=== PATIENT | female | born 1985 | race Two or more races ===

== ENCOUNTER → 2024-02-16 15:56 | Outpatient (CLI) | payer OTHER | END | disposition home or self-care (01) | LOC: PRENATAL 15:56 | PROVIDERS: ATTEND Obstetrics & Gynecology Maternal & Fetal Medicine | DX: O35.9XX0 Maternal care for (suspected) fetal abnormality and damage, unspecified, not applicable or unspecified (principal); O44.02 Complete placenta previa NOS or without hemorrhage, second trimester; O09.522 Supervision of elderly multigravida, second trimester; O34.12 Maternal care for benign tumor of corpus uteri, second trimester; D25.9 Leiomyoma of uterus, unspecified; O35.3XX0 Maternal care for (suspected) damage to fetus from viral disease in mother, not applicable or unspecified; A92.5 Zika virus disease; Z3A.20 20 weeks gestation of pregnancy ==

== ENCOUNTER 2024-02-24 19:38 | Emergency (ER) | payer OTHER ==
[~2024-02-24] VITALS: Ht 152.4 cm; Wt 60.8 kg
[2024-02-24] MEDS ORDERED: PRENA1 TRUE CO1 EACH (20:02)
[2024-02-24] MEDS ORDERED: ACETAMINOPHEN 325 MG TABLET PO STA (20:46)
== END 2024-02-24 22:45 | disposition home or self-care (01) ==
LOC: ER 19:39
DX: O98.512 Other viral diseases complicating pregnancy, second trimester (principal); U07.1 COVID-19; Z3A.20 20 weeks gestation of pregnancy

== ENCOUNTER 2024-03-04 21:18 | Emergency (ER) | payer OTHER ==
[~2024-03-04] VITALS: Ht 152.4 cm; Wt 60.8 kg
[~2024-03-04 21:18] MED LIST: PRENA1 TRUE CO1 EACH
== END 2024-03-04 22:52 | disposition home or self-care (01) ==
LOC: ER 21:19
DX: R00.2 Palpitations (principal)

== ENCOUNTER 2024-04-13 13:22 | Outpatient (CLI) | payer OTHER | END 2024-04-13 13:23 | disposition home or self-care (01) | LOC: PRENATAL 13:22 | PROVIDERS: ATTEND Obstetrics & Gynecology Maternal & Fetal Medicine | DX: O26.843 Uterine size-date discrepancy, third trimester (principal); O44.03 Complete placenta previa NOS or without hemorrhage, third trimester; O09.523 Supervision of elderly multigravida, third trimester; O34.13 Maternal care for benign tumor of corpus uteri, third trimester; Z3A.28 28 weeks gestation of pregnancy ==

== ENCOUNTER 2024-05-23 15:20 | Outpatient (CLI) | payer OTHER | END 2024-05-23 15:21 | disposition home or self-care (01) | LOC: PRENATAL 15:20 | PROVIDERS: ATTEND Obstetrics & Gynecology Maternal & Fetal Medicine | DX: O26.849 Uterine size-date discrepancy, unspecified trimester (principal); O36.8199 Decreased fetal movements, unspecified trimester, other fetus; O09.529 Supervision of elderly multigravida, unspecified trimester; O34.10 Maternal care for benign tumor of corpus uteri, unspecified trimester; O99.019 Anemia complicating pregnancy, unspecified trimester; Z3A.34 34 weeks gestation of pregnancy ==

== ENCOUNTER 2024-06-20 13:15 | Inpatient (IN) | payer OTHER ==
[~2024-06-20] VITALS: Ht 154.9 cm; Wt 68.0 kg
[2024-06-28] MEDS ORDERED: RINGERS SOLUTION,LACTATED 1,000 ML IV SCH (18:00)
[2024-06-28] MEDS ORDERED: AMPICILLIN SODIUM 2,000 MG VIAL IV ONE (18:15)
[2024-06-28 18:20] VITALS: BP 125/78
[2024-06-28] MEDS ORDERED: ACETAMINOPHEN 325 MG TABLET PO PRN (19:00)
[2024-06-28] MEDS ORDERED: OxyCODONE HCL/APAP UD (PERCOCET) PO PRN (19:00)
[2024-06-28] MEDS ORDERED: OXYTOCIN 20 UNITS/1000ML RL PIGGYBAG IV ONE (19:00)
[2024-06-28] MEDS ORDERED: CHLORHEXIDINE GLUCONATE 120 ML BOTTLE TOP ONE (19:00)
[2024-06-28 20:15] LABS: HEMATOCRIT 30.6 % (36.0-45.00); HEMOGLOBIN 10.1 g/dL (12.0-15.00); MEAN CORPUSCULAR HEMOGLOBIN 28.3 pg (27.00-32.0); MEAN CORPUSCULAR HGB CONC 32.9 g/dl (32.0-36.0); PLATELET COUNT 180 K/uL (150-450); RED BLOOD COUNT 3.56 M/uL (4.00-6.00); RED CELL DISTRIBUTION WIDTH 14.9 % (11.5-14.5)
[2024-06-28 20:31] LABS: INR 0.94; PARTIAL THROMBOPLASTIN TIME 27.6 SECONDS (22.0-34.0); PROTHROMBIN TIME 10.3 SECONDS (9.0-11.5)
[2024-06-28 20:35] LABS: ALBUMIN 2.7 gm/dL (3.4-5.0); BILIRUBIN TOTAL 0.4 mg/dL (0.3-1.2); CALCIUM 8.5 mg/dL (8.5-10.1); CREATININE SERUM 0.66 mg/dL (0.55-1.02); GFR 99.19; GLOBULINA 3.9 G/DL (2.4-3.5); POTASSIUM 3.6 mEq/L (3.5-5.1); TOTAL PROTEIN 6.6 gm/dL (6.4-8.2)
[2024-06-28 22:40] VITALS: BP 113/63
[2024-06-29 00:32] VITALS: BP 104/69
[2024-06-29 01:28] LABS: HEMATOCRIT 28.3 % (36.0-45.00); HEMOGLOBIN 9.1 g/dL (12.0-15.00); MEAN CELL VOLUME 87.1 fL (80.00-100.00); MEAN CORPUSCULAR HGB CONC 32.1 g/dl (32.0-36.0); PLATELET COUNT 162 K/uL (150-450); RED BLOOD COUNT 3.25 M/uL (4.00-6.00); RED CELL DISTRIBUTION WIDTH 14.8 % (11.5-14.5)
[2024-06-29 07:46] VITALS: BP 104/72
[2024-06-29] MEDS ORDERED: BENZOCAINE/MENTHOL 90 ML BOTTLE TOP SCH (09:00)
[2024-06-29] MEDS ORDERED: HYDROCORTISONE 2.5% 30 GM TUBE RECTAL SCH (09:00)
[2024-06-29 16:29] VITALS: BP 100/67
[2024-06-30 00:42] VITALS: BP 95/62
[2024-06-30 08:18] VITALS: BP 106/62
== END 2024-06-30 15:12 | disposition home or self-care (01) | DRG 807 ==
LOC: OB/GYN 06-28 18:33 → LDR 06-28 18:33 → OB/GYN 06-28 20:43
PROVIDERS: ADMIT Specialist; ATTEND Specialist
PROC: 10E0XZZ Delivery of Products of Conception, External Approach (ICD-10-PCS; principal; 2024-06-28)
PROC: 0HQ9XZZ Repair Perineum Skin, External Approach (ICD-10-PCS; 2024-06-28)
PROC: 4A1HXCZ Monitoring of Products of Conception, Cardiac Rate, External Approach (ICD-10-PCS; 2024-06-28)
DX: O70.0 First degree perineal laceration during delivery (principal); Z37.0 Single live birth; Z3A.39 39 weeks gestation of pregnancy; Z20.822 Contact with and (suspected) exposure to COVID-19